=== PATIENT | female | born 1995 | race American Indian/Alaskan Native ===

== ENCOUNTER 2021-07-24 14:49 | Emergency (ER) | payer SELFPAY ==
[2021-07-24 15:20] VITALS: BP 99/54
--- NOTE | 2021-07-24 15:34 | Emergency Department Report ---
ED ENT HPI - General Chief complaint: Earache Stated complaint: PAIN EAR Time Seen by Provider: 07/24/21 15:18 Source: patient Mode of arrival: Ambulatory Limitations: No Limitations - History of Present Illness Initial comments: Patient is a 26-year-old female presents emergency room complaints of pain in her left ear that began a week ago. She states that her hearing feels slightly muffled. She denies anything getting into the ear. She denies any ear bleeding or drainage. She denies any fever, chills, vomiting, diarrhea, cough, shortness of breath. She denies any known sick contacts or recent travel. No past medical history. No allergies to medications. - Related Data Previous Rx's Medication Instructions Recorded Last Taken Type Ofloxacin 0.3% [Floxin 0.3% Otic] 10 drops DAILY 7 Days #1 bottle 07/24/21 Unknown Rx Allergies Allergy/AdvReac Type Severity Reaction Status Date / Time steroid Allergy Unknown Uncoded 07/24/21 15:16 ED Dental HPI - General Chief complaint: Earache Stated complaint: PAIN EAR Time Seen by Provider: 07/24/21 15:18 Source: patient Mode of arrival: Ambulatory Limitations: No Limitations - Related Data Previous Rx's Medication Instructions Recorded Last Taken Type Ofloxacin 0.3% [Floxin 0.3% Otic] 10 drops DAILY 7 Days #1 bottle 07/24/21 Unknown Rx Allergies Allergy/AdvReac Type Severity Reaction Status Date / Time steroid Allergy Unknown Uncoded 07/24/21 15:16 ED Review of Systems ROS: Stated complaint: PAIN EAR Other details as noted in HPI Comment: All other systems reviewed and negative ED Past Medical Hx - Past Medical History Previous Medical History?: No - Surgical History Past Surgical History?: No - Medications Home Medications: Home Medications Medication Instructions Recorded Confirmed Last Taken Type Ofloxacin 0.3% [Floxin 0.3% Otic] 10 drops DAILY 7 Days #1 bottle 07/24/21 Unknown Rx ED Physical Exam - General Limitations: No Limitations General appearance: alert, in no apparent distress - Head Head exam: Present: atraumatic, normocephalic - Eye Eye exam: Present: normal appearance - ENT ENT exam: Present: mucous membranes moist, other (right TM and canal are normal, left TM is normal, left canal is erythematous with scaling present, no visualized foreign bodies, no signs of TM perforation) - Respiratory Respiratory exam: Absent: respiratory distress, accessory muscle use - Neurological Exam Neurological exam: Present: alert, oriented X3 - Psychiatric Psychiatric exam: Present: normal affect, normal mood - Skin Skin exam: Present: warm, dry, intact ED Course Vital Signs 07/24/21 15:20 Temperature 98.4 F Pulse Rate 90 Respiratory 20 Rate Blood Pressure 99/54 [Right] O2 Sat by Pulse 100 Oximetry ED Medical Decision Making - Medical Decision Making Patient is a 26-year-old female presents emergency room complaints of pain in her left ear that began a week ago. She states that her hearing feels slightly muffled. She denies anything getting into the ear. She denies any ear bleeding or drainage. She denies any fever, chills, vomiting, diarrhea, cough, shortness of breath. She denies any known sick contacts or recent travel. No past medical history. No allergies to medications. VSS. on exam: right TM and canal are normal, left TM is normal, left canal is erythematous with scaling present, no visualized foreign bodies, no signs of TM perforation. examination appears likely consistent with otitis externa, no signs of otitis media, no perforation. advised pt Please use medication as prescribed. May take Tylenol as needed for any pain. Please follow-up with your primary care doctor. Follow-up with a gear technician if symptoms are not improving. Return to emergency room for any new or worsening symptoms. Critical care attestation.: If time is entered above; I have spent that time in minutes in the direct care of this critically ill patient, excluding procedure time. ED Disposition Clinical Impression: Otitis externa Qualifiers: Otitis externa type: unspecified type Chronicity: acute Laterality: left Qualified Code(s): H60.502 - Unspecified acute noninfective otitis externa, left ear Disposition: HOME / SELF CARE / HOMELESS Is pt being admited?: No Does the pt Need Aspirin: No Condition: Stable Instructions: Otitis Externa, [id number] Additional Instructions: Please use medication as prescribed. May take Tylenol as needed for any pain. Please follow-up with your primary care doctor. Follow-up with a gear technician if symptoms are not improving. Return to emergency room for any new or worsening symptoms. Prescriptions: Ofloxacin 0.3% [Floxin 0.3% Otic] 10 drops DAILY 7 Days #1 bottle Referrals: ISIAH YORK MD [Staff Physician] - 3-5 Days [facility] [Provider Group] - 3-5 Days CHIKA VARGAS MD [Staff Physician] - 3-5 Days (ENT) GAVIOTA ECHOLS MD [Referring] - 3-5 Days (ENT) Time of Disposition: 15:32 Print Language: NAURUAN
== END 2021-07-24 16:05 | disposition home or self-care (01) ==
LOC: ED 14:49
DX: H60.92 Unspecified otitis externa, left ear (principal); Z88.8 Allergy status to other drugs, medicaments and biological substances
CPT/HCPCS: 99282